=== PATIENT | female | born 1950 | race Caucasian/White ===

== ENCOUNTER → 2021-02-05 | Outpatient (CLI) | payer MEDICARE, BC ==
--- NOTE | 2021-02-05 11:19 | RAD ---
MR#: [id number] Date of Study: 02/05/2021 Ordering Physician: RENEE LYLES, Referring Physician: RENEE LYLES, Tech: Felipe Wiley MBA, RDMS, RVT, RDCS, RTR APPROVED REPORT Patient Location : OUT-PATIENT Indications Lower Extremity Pain : Bilateral Lesser Saphenous Veins (LSV) Reflux : Yes Perforators Thigh Perforators Calf Perforators Right: cm up from medial heel 9cm back from the anterior border of tibia 3 diameter 2.5mm. Findings Grayscale images the bilateral saphenofemoral junctions are grossly unremarkable. The right great sa phenous vein measures 4.1 mm and the left great saphenous vein measures 4.6 mm. Bilateral greater sa phenous veins did not show any evidence of reflux. Bilateral lesser saphenous veins also did not azra w any evidence of reflux. 1 perforators noted at the right calf approximately 9 cm up and 3 cm back from the ankle measuring ap proximately 2.5 mm and is notable for reflux. Critical Notification Critical Value: No <Conclusion> 1. No significant reflux in the bilateral greater and lesser saphenous veins. Signed by : Renee Lyles, Electronically Approved : 02/05/2021 11:18:31
== END ==
LOC: US 09:58
PROVIDERS: ATTEND Internal Medicine Cardiovascular Disease
DX: M79.604 Pain in right leg (principal); M79.605 Pain in left leg
CPT/HCPCS: 93970

== ENCOUNTER → 2021-08-14 | Outpatient (CLI) | payer MEDICARE, BC ==
--- NOTE | 2021-08-15 17:30 | CARD ---
MR#: [id number] Date of Study: 08/14/2021 Ordering Physician: RENEE LYLES, Referring Physician: RENEE LYLES, Tech: Mariana Bean [facility] APPROVED REPORT EXAM: Two-dimensional and M-mode echocardiogram with Doppler and color Doppler. Other Information Quality : AverageHR: 77bpm Rhythm : NSR INDICATION Cardiac Disease: RISK FACTORS Hypertension Obesity 2D DIMENSIONS RVDd2.7 (2.9-3.5cm)Left Atrium(2D)4.2 (1.6-4.0cm) IVSd1.6 (0.7-1.1cm)Aortic Root(2D)3.8 (2.0-3.7cm) LVDd4.3 (3.9-5.9cm)LVOT Diameter2.6 (1.8-2.4cm) PWd1.6 (0.7-1.1cm)LVDs3.0 (2.5-4.0cm) FS (%) 29.5 %SV47.0 ml Aortic Valve AoV Peak Zachery.156.9cm/sAoV VTI30.5cm AO Peak GR.9.8mmHgLVOT Peak Zachery.136.5cm/s AO Mean GR.5mmHgAVA (VMAX)4.50cm2 Mitral Valve MV E Ffbheubc75.2cm/sMV DECEL [id number] MV A Lzuqdhob60.5cm/sE/A Ratio0.6 LEFT VENTRICLE The left ventricle is normal size. There is mild to moderate concentric left ventricular hypertrophy. The left ventricular systolic function is normal and the ejection fraction is within normal range. LV ejection fraction is 60-65%. There is normal LV segmental wall motion. RIGHT VENTRICLE The right ventricle is normal size. There is normal right ventricular wall thickness. The right ventr icular systolic function is normal. ATRIA The left atrium size is normal. The right atrium size is normal. The interatrial septum is intact wit h no evidence for an atrial septal defect or patent foramen ovale as noted on 2-D or Doppler imaging. AORTIC VALVE The aortic valve is normal in structure and function. Doppler and Color Flow revealed no significant aortic regurgitation. There is no significant aortic valvular stenosis. MITRAL VALVE The mitral valve is normal in structure and function. There is no evidence of mitral valve prolapse. There is no mitral valve stenosis. Doppler and Color Flow revealed trace mitral valve regurgitation. TRICUSPID VALVE The tricuspid valve is normal in structure and function. Doppler and Color Flow revealed trace tricus pid valve regurgitation. There is no tricuspid valve stenosis. PULMONIC VALVE The pulmonary valve is normal in structure and function. Doppler and Color Flow revealed no pulmonic valvular regurgitation. GREAT VESSELS The aortic root is mildly enlarged. The IVC is normal in size and collapses >50% with inspiration. PERICARDIAL EFFUSION There is no evidence of significant pericardial effusion. Critical Notification Critical Value: No <Conclusion> The left ventricle is normal size. The left ventricular systolic function is normal and the ejection fraction is within normal range. LV ejection fraction is 60-65%. There is mild to moderate concentric left ventricular hypertrophy. Doppler and Color Flow revealed no significant aortic regurgitation. There is no significant aortic valvular stenosis. Doppler and Color Flow revealed trace mitral valve regurgitation. Doppler and Color Flow revealed trace tricuspid valve regurgitation. The aortic root is mildly enlarged. Signed by : Dennis Newton MD Electronically Approved : 08/15/2021 17:30:23
--- NOTE | 2021-08-16 09:56 | RAD ---
MR#: [id number] Date of Study: 08/14/2021 Ordering Physician: RENEE LYLES, Referring Physician: RENEE LYLES, Tech: Felipe Wiley MBA, RDMS, RVT, RDCS, RTR APPROVED REPORT Patient Location: OUT-PATIENT Laterality:Bilateral Indications Bruit Doppler Spectral Velocity Analysis Right Left pCCA 82/18 cm/spCCA 116/33 cm/s mCCA 73/23 cm/smCCA 121/33 cm/s dCCA 63/16 cm/sdCCA 69/21 cm/s Bulb 57/23 cm/sBulb 69/21 cm/s ECA 81/ cm/sECA 70/ cm/s pICA 53/21 cm/spICA 61/22 cm/s Erica 65/24 cm/smICA 67/25 cm/s dICA 69/30 cm/sdICA 75/31 cm/s Vert. 57/ cm/sVert. 60/ cm/s Subcl. 74/ cm/sSubcl. 136/ cm/s ICA/CCA 0.84ICA/CCA 0.65 Findings Grayscale images of bilateral extracranial carotid vessels showed mild diffuse plaque. Spectral wave forms and color duplex analysis are within normal limits bilaterally suggestive of less than 0 to les s than 50% stenosis. The ICA to CCA ratios are normal bilaterally. The vertebral arteries showed no rmal antegrade velocities bilaterally. No significant carotid artery stenosis was noted. Critical Notification Critical Value: No <Conclusion> Carotid arterial duplex scan did not show any significant stenosis. Signed by : Ricky Green, Electronically Approved : 08/16/2021 09:56:08
== END ==
LOC: ECHO 08:46
PROVIDERS: ATTEND Internal Medicine Cardiovascular Disease
DX: I51.7 Cardiomegaly (principal); I77.819 Aortic ectasia, unspecified site; I65.23 Occlusion and stenosis of bilateral carotid arteries; I42.9 Cardiomyopathy, unspecified; R09.89 Other specified symptoms and signs involving the circulatory and respiratory systems
CPT/HCPCS: 93306; 93880